=== PATIENT | male | born 1970 | race Caucasian/White ===

== ENCOUNTER 2019-05-03 10:39 | Emergency (ER) | payer SELFPAY ==
[~2019-05-03] VITALS: Ht 165.1 cm; Wt 68.0 kg
[2019-05-03] MEDS ORDERED: Permethrin60 GM TOP (11:36)
== END 2019-05-03 11:43 | disposition home or self-care (01) ==
LOC: ER 10:39
DX: B86 Scabies (principal); F17.210 Nicotine dependence, cigarettes, uncomplicated
CPT/HCPCS: 99282